=== PATIENT | female | born 1995 | race Caucasian/White ===

== ENCOUNTER 2017-06-02 14:17 | Emergency (ER) | payer BC ==
[~2017-06-02] VITALS: Ht 157.5 cm; Wt 95.2 kg
[~2017-06-02 14:17] MED LIST: ANUSOL-HC30 GM PR; COLACE100 MG PO; SPRINTEC1 EACH PO; ZOFRAN4 MG PO
== END 2017-06-02 15:03 | disposition home or self-care (01) ==
LOC: ED 14:17
DX: Z00.8 Encounter for other general examination (principal)

== ENCOUNTER 2020-09-23 18:39 | Emergency (ER) | payer OTHER ==
[~2020-09-23] VITALS: Ht 157.5 cm; Wt 102.1 kg
[2020-09-23] MEDS ORDERED: OMEPRAZOLE20 MG PO (18:55)
[2020-09-23] MEDS ORDERED: ESCITALOPRAM OX20 MG PO (18:56)
[2020-09-23] MEDS ORDERED: SPRINTEC1 EACH PO (19:36)
== END 2020-09-23 22:10 | disposition home or self-care (01) ==
LOC: ED 18:39
DX: N93.9 Abnormal uterine and vaginal bleeding, unspecified (principal); D64.9 Anemia, unspecified; Z87.891 Personal history of nicotine dependence; Z88.8 Allergy status to other drugs, medicaments and biological substances; Z79.899 Other long term (current) drug therapy
CPT/HCPCS: 76801; 76817; 84702; 84703; 85025; 86900; 86901; 99284-25

== ENCOUNTER 2020-12-20 14:54 | Emergency (ER) | payer OTHER ==
[~2020-12-20] VITALS: Ht 157.5 cm; Wt 102.1 kg
[~2020-12-20 14:54] MED LIST changes: +ESCITALOPRAM OX20 MG PO; +OMEPRAZOLE20 MG PO
== END 2020-12-20 17:25 | disposition home or self-care (01) ==
LOC: ED 14:54
DX: N93.8 Other specified abnormal uterine and vaginal bleeding (principal); D64.9 Anemia, unspecified; Z87.891 Personal history of nicotine dependence; Z88.6 Allergy status to analgesic agent; Z79.899 Other long term (current) drug therapy
CPT/HCPCS: 36415; 84703; 85025; 99284

== ENCOUNTER 2020-12-26 18:44 | Emergency (ER) | payer OTHER ==
[~2020-12-26] VITALS: Ht 157.5 cm; Wt 104.3 kg
--- OUTSIDE RECORDS SUMMARY | 2020-12-26 18:48 | XMS ---
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 Anna has no Care Guidelines for this patient. Delilah VISIT COUNT (12 MO.) [address] [facility] TOTAL 3 NOTE: Visits indicate total known visits. ED/[facility] [place] VISIT TRACKING (12 MO.) 12/26/2020 18:46 [facility] [place] TYPE: Emergency COMPLAINT: - DISCHARGE FROM [facility] 12/20/2020 14:55 [facility] [place] TYPE: Emergency COMPLAINT: - VAGINAL BLEEDING DIAGNOSES: - Abnormal uterine and vaginal bleeding, unspecified - Personal history of nicotine dependence - Other exterminator (current) drug therapy - Anemia, unspecified - Other specified abnormal uterine and vaginal bleeding - Allergy status to analgesic agent 09/23/2020 18:39 [facility] [place] TYPE: Emergency COMPLAINT: - VAGINAL BLEEDING DIAGNOSES: - Anemia, unspecified - Personal history of nicotine dependence - Allergy status to other drugs, medicaments and biological substances - Other exterminator (current) drug therapy - Abnormal uterine and vaginal bleeding, unspecified INPATIENT VISIT TRACKING (12 MO.) No inpatient visits to display in this time frame [email or web address]
[2020-12-26] MEDS ORDERED: DOXYCYCLINE HY100 MG PO (20:23)
== END 2020-12-26 20:42 | disposition home or self-care (01) ==
LOC: ED 18:44
DX: L08.82 Omphalitis not of newborn (principal); D64.9 Anemia, unspecified; Z88.6 Allergy status to analgesic agent; Z91.018 Allergy to other foods; Z79.899 Other long term (current) drug therapy
CPT/HCPCS: 99282

== ENCOUNTER 2021-08-26 18:46 | Emergency (ER) | payer OTHER ==
[~2021-08-26] VITALS: Ht 157.5 cm; Wt 97.3 kg
[~2021-08-26 18:46] MED LIST changes: +DOXYCYCLINE HY100 MG PO
--- OUTSIDE RECORDS SUMMARY | 2021-08-26 18:48 | XMS ---
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 Anna has no Care Guidelines for this patient. Delilah VISIT COUNT (12 MO.) 4 [facility]ureshi TOTAL 4 NOTE: Visits indicate total known visits. 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 - Anemia, unspecified - Other specified abnormal uterine and vaginal bleeding - Allergy status to analgesic agent 09/23/2020 18:39 [facility] [place] TYPE: Emergency COMPLAINT: - VAGINAL BLEEDING DIAGNOSES: - Anemia, unspecified - Encounter for issue of repeat prescription - Major depressive disorder, single episode, unspecified - Personal history of nicotine dependence - Allergy status to other drugs, medicaments and biological substances - Encounter for surveillance of contraceptive pills - Pelvic and perineal pain - Encounter for test, result positive - 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
[2021-08-26] MEDS ORDERED: MONO-LINYAH1 EACH PO (19:33)
[2021-08-26] MEDS ORDERED: ESCITALOPRAM OX10 MG PO (19:33)
[2021-08-26] MEDS ORDERED: VENTOLIN HFA18 GM INH (19:33)
[2021-08-26] MEDS ORDERED: GUAIFENESIN AC473 ML PO (19:57)
== END 2021-08-26 20:21 | disposition home or self-care (01) ==
LOC: ED 18:46
DX: J20.9 Acute bronchitis, unspecified (principal); D64.9 Anemia, unspecified; J45.909 Unspecified asthma, uncomplicated; Z91.018 Allergy to other foods; Z79.51 Long term (current) use of inhaled steroids; Z79.899 Other long term (current) drug therapy; Z88.6 Allergy status to analgesic agent
CPT/HCPCS: 99284

== ENCOUNTER 2023-04-30 05:43 | Emergency (ER) | payer OTHER ==
[~2023-04-30] VITALS: Ht 157.5 cm; Wt 97.1 kg
[~2023-04-30 05:43] MED LIST changes: +DICYCLOMINE HCL10 MG PO; +ESCITALOPRAM OX10 MG PO; +GUAIFENESIN AC473 ML PO; +LIDODERM1 EACH TOP; +METHYLPREDNISOLO4 M1 PO; +MONO-LINYAH1 EACH PO; +SUCRALFATE1 GM PO; +VENTOLIN HFA18 GM INH
[2023-04-30 06:21] VITALS: BP 126/80
[2023-04-30 06:47] LABS: INFLUENZA B NAA NEGATIVE (NEGATIVE); RESPIRATORY SYNCYTIAL VIR NAA NEGATIVE (NEGATIVE)
== END 2023-04-30 06:12 | disposition home or self-care (01) ==
LOC: ED 05:43
PROVIDERS: Emergency Medicine
DX: J06.9 Acute upper respiratory infection, unspecified (principal); B97.89 Other viral agents as the cause of diseases classified elsewhere; J45.909 Unspecified asthma, uncomplicated; Z88.8 Allergy status to other drugs, medicaments and biological substances; Z91.018 Allergy to other foods; Z79.899 Other long term (current) drug therapy
CPT/HCPCS: 87502; 99283; C9803; U0002

== ENCOUNTER 2025-05-10 12:04 | Emergency (ER) | payer OTHER ==
[~2025-05-10] VITALS: Ht 157.5 cm; Wt 95.3 kg
[~2025-05-10 12:04] MED LIST changes: +PROPRANOLOL HCL10 MG PO
[2025-05-10 13:44] LABS: BASOPHILS 0.6 % (0.1-1.2); EOSINOPHILS 2.3 % (0.7-5.8); LYMPHOCYTES 18.8 % (19.3-51.7); MCH 32.2 PG (25.6-32.2); MCHC 33.7 g/dL (32.2-35.5); MCV 95.6 fL (79.4-94.8); MONOCYTES 5.8 % (4.7-12.5); NEUTROPHILS 72.2 % (34.0-71.1); RBC 4.13 M/uL (3.93-5.22)
[2025-05-10 13:55] LABS: ALT (SGPT) 27.0 U/L (14-59); AST (SGOT) 14.0 U/L (15-37); GLOMERULAR FILTRATION RATE,EST 97.0 mL/min (>60); PROTEIN, TOTAL 7.5 g/dL (6.4-8.2); UREA NITROGEN 7.0 mg/dL (7-18)
[2025-05-10 15:38] VITALS: BP 141/93
== END 2025-05-10 15:38 | disposition home or self-care (01) ==
LOC: ED 12:04
PROVIDERS: Emergency Medicine
DX: N92.1 Excessive and frequent menstruation with irregular cycle (principal); J45.909 Unspecified asthma, uncomplicated; Z88.8 Allergy status to other drugs, medicaments and biological substances; Z91.018 Allergy to other foods; Z79.899 Other long term (current) drug therapy
CPT/HCPCS: 36415; 80053; 84703; 85025; 99284

== ENCOUNTER 2025-05-30 14:02 | Emergency (ER) | payer OTHER ==
[~2025-05-30] VITALS: Ht 157.5 cm; Wt 95.0 kg
--- OUTSIDE RECORDS SUMMARY | 2025-05-30 14:05 | XMS ---
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 EMaylin VISIT COUNT (12 MO.) 2 [facility] Qureshi TOTAL 2 NOTE: Visits indicate total known visits. ED/[facility] VISIT TRACKING (12 MO.) 05/30/2025 14:03 [facility] [place] TYPE: Emergency COMPLAINT: - EXTREMITY PAIN 05/10/2025 12:05 [facility] [place] TYPE: Emergency COMPLAINT: - LOWER ABDOMINAL PAIN DIAGNOSES: - Allergy status to other drugs, medicaments and biological substances - Allergy to other foods - Excessive and frequent menstruation with irregular cycle - Other residential (current) drug therapy - Unspecified abdominal pain - Unspecified asthma, uncomplicated INPATIENT VISIT TRACKING (12 MO.) No inpatient visits to display in this time frame [id number]
[2025-05-30] MEDS ORDERED: CYCLOBENZAPRINE HCL 10 MG TAB PO ONE (14:30)
[2025-05-30] MEDS ORDERED: CYCLOBENZAPRINE10 MG PO (14:54)
[2025-05-30 15:11] VITALS: BP 113/68
== END 2025-05-30 15:12 | disposition home or self-care (01) ==
LOC: ED 14:02
DX: M25.512 Pain in left shoulder (principal); J45.909 Unspecified asthma, uncomplicated; Z88.8 Allergy status to other drugs, medicaments and biological substances; Z91.018 Allergy to other foods; Z79.899 Other long term (current) drug therapy
CPT/HCPCS: 99283